=== PATIENT | female | born 1975 | race Caucasian/White ===

== ENCOUNTER 2017-01-01 17:39 | Emergency (ER) | payer OTHER ==
[~2017-01-01] VITALS: Ht 165.1 cm; Wt 72.7 kg
[2017-01-01] MEDS ORDERED: MAGN296S PO (17:53)
[2017-01-01] MEDS ORDERED: SIME125C PO (17:53)
[2017-01-01 18:25] LABS: BASOPHILS % (AUTO) 0.1 % (0.0-2.0); EOSINOPHILS % (AUTO) 0.1 % (1.0-6.0); HEMATOCRIT 28.8 % (41-53); HEMOGLOBIN 8.6 g/dL (13.5-17.5); LYMPHOCYTES # (AUTO) 0.5 K/uL (1.0-4.8); LYMPHOCYTES % (AUTO) 6.6 % (22.0-44.0); MEAN CORPUSCULAR HEMOGLOBIN 20.8 pg (26.0-34.0); MEAN CORPUSCULAR VOLUME 69 fL (80-100); MONOCYTES # (AUTO) 0.4 K/uL (0.1-1.0); MONOCYTES % (AUTO) 5.7 % (2.0-9.0); NEUTROPHILS # (AUTO) 6.7 K/uL (1.8-7.7); PLATELET COUNT (AUTO) 204 K/uL (150-450); RED BLOOD CELL COUNT(AUTO) 4.14 MIL/uL (4.50-5.90); RED CELL DISTRIBUTION WIDTH 17.5 % (11.5-14.5); WHITE BLOOD COUNT (AUTO) 7.6 K/uL (4.5-11.0)
[2017-01-01 18:32] LABS: NEUTROPHILS % (AUTO) 87.5 % (40.0-70.0)
[2017-01-01 18:34] LABS: ANION GAP 10 mmol/L (8-16); CARBON DIOXIDE 27 mmol/L (22-29); CHLORIDE 103 mmol/L (98-107); CREATININE 0.76 mg/dL (0.60-1.30); GLOMERULAR FILTR. RATE CALC > 60 mL/min (>60); POTASSIUM 3.7 mmol/L (3.5-5.1); SODIUM SERUM 140 mmol/L (136-145); UREA NITROGEN, BLOOD 14 mg/dL (7-18)
[2017-01-01 18:41] LABS: ALANINE AMINOTRANSFERASE 18 U/L (12-78); ALBUMIN 3.6 g/dL (3.4-5.0); ASPARTATE AMINOTRANSFERASE 16 U/L (15-37); BILIRUBIN,TOTAL 0.7 mg/dL (0.1-1.0)
[2017-01-01 18:51] LABS: RBC MORPHOLOGY COMMENT ABNORMAL RBC MORPH
[2017-01-01 20:30] LABS: APPEARANCE,URINE CLEAR (CLEAR); GLUCOSE, URINE (UA) NEGATIVE (NEGATIVE); KETONES,URINE TRACE mg/dL (NEGATIVE); LEUKOCYTE ESTERASE ,URINE NEGATIVE (NEGATIVE); OCCULT BLOOD,URINE NEGATIVE (NEGATIVE); PH,URINE 7.5 (5.0-8.0); PROTEIN,URINE TRACE (NEGATIVE)
[2017-01-01 20:32] LABS: ADD UA MICROSCOPIC NO
[2017-01-01] MEDS ORDERED: HYDROmorphone 2 MG/ML SYRINGE IVP ONE (20:45)
[2017-01-01] MEDS ORDERED: SODIUM CHLORIDE 0.9% 1,000 ML IV ONE (20:45)
[2017-01-01] MEDS ORDERED: ONDANSETRON HCL 4 MG/2 ML VIAL IVP ONE (20:45)
[2017-01-01] MEDS ORDERED: BARIUM SULFATE 0.1% SUSPENSION 450 ML BOTTLE PO ONE (20:45)
[2017-01-01] MEDS ORDERED: SODIUM CHLORIDE 0.9% 100 ML ONE (22:45)
[2017-01-01] MEDS ORDERED: IOVERSOL 320 MG/ML 100 ML VIAL ONE (22:45)
[2017-01-02 00:59] VITALS: BP 95/62
[2017-01-02] MEDS ORDERED: KETOROLAC TROMETHAMINE 30 MG/ML VIAL IVP ONE (01:00)
[2017-01-02] MEDS ORDERED: ONDANSETRON HCL 4 MG/2 ML VIAL IVP ONE (01:00)
[2017-01-02] MEDS ORDERED: HYDROmorphone 2 MG/ML SYRINGE IVP ONE (01:00)
== END 2017-01-02 01:47 | disposition home or self-care (01) ==
LOC: EDSEX 17:41 → EMS 17:41
DX: N94.6 Dysmenorrhea, unspecified (principal); K59.00 Constipation, unspecified; D25.9 Leiomyoma of uterus, unspecified; N83.202 Unspecified ovarian cyst, left side; R10.2 Pelvic and perineal pain
CPT/HCPCS: 36415; 71010; 74177; 80053; 81003; 83690; 84484; 85025; 93005; 96361; 96374; 96375; 96376; 99285; J1170 ×2; J1885; J2405 ×2; J7030; J7050; Q9967; Z7610

== ENCOUNTER 2017-07-02 17:57 | Emergency (ER) | payer OTHER ==
[~2017-07-02] VITALS: Ht 165.1 cm; Wt 51.4 kg
[~2017-07-02 17:57] MED LIST: MAGN296S PO; SIME125C PO
[2017-07-02] MEDS ORDERED: KETOROLAC TROMETHAMINE 60 MG/2 ML VIAL IM ONE (18:30)
[2017-07-02 19:09] VITALS: BP 132/71
== END 2017-07-02 19:45 | disposition home or self-care (01) ==
LOC: EMS 17:59
DX: S93.401A Sprain of unspecified ligament of right ankle, initial encounter (principal); W22.8XXA Striking against or struck by other objects, initial encounter; Y93.89 Activity, other specified; Y92.89 Other specified places as the place of occurrence of the external cause; Y99.8 Other external cause status
CPT/HCPCS: 29540; 73610; 96372; 99284; J1885

== ENCOUNTER 2021-02-28 12:57 | Emergency (ER) | payer OTHER ==
[~2021-02-28] VITALS: Ht 165.1 cm; Wt 52.3 kg
[2021-02-28] MEDS ORDERED: PROPARACAINE HCL 0.5% 15 ML OPHTHALMIC SOLUTION OU ONE (15:15)
[2021-02-28] MEDS ORDERED: FLUORESCEIN SODIUM 1 MG STRIP OU ONE (15:15)
[2021-02-28 16:20] VITALS: BP 113/60
== END 2021-02-28 16:48 | disposition home or self-care (01) ==
LOC: EMS 12:57
DX: H01.001 Unspecified blepharitis right upper eyelid (principal); H10.13 Acute atopic conjunctivitis, bilateral
CPT/HCPCS: 99283

== ENCOUNTER 2023-10-18 20:52 | Emergency (ER) | payer OTHER ==
[~2023-10-18] VITALS: Ht 165.1 cm; Wt 45.0 kg
[2023-10-18 20:58] VITALS: TEMP 98
[2023-10-18] MEDS ORDERED: TOBR5DRO44 OU (23:17)
[2023-10-18 23:42] VITALS: BP 110/65; PULSE 69; RESP 18
== END 2023-10-18 23:45 | disposition home or self-care (01) ==
LOC: EMS 20:52
DX: H10.89 Other conjunctivitis (principal)
CPT/HCPCS: 99283